=== PATIENT | female | born 1970 | race Caucasian/White ===

== ENCOUNTER 2017-05-08 17:04 | Emergency (ER) | payer OTHER ==
[~2017-05-08] VITALS: Ht 170.2 cm; Wt 69.9 kg
[~2017-05-08 17:04] MED LIST: BENADRYL50 MG PO; CIPRO500 MG PO; DAY-TIME COLD-1 EACH PO; MACROBID100 MG PO; NOHOMEMEDS; NYQUIL D COLD295 ML PO; PYRIDIUM100 MG PO; PYRIDIUM200 MG PO; TYLENOL PM PO
[2017-05-08 20:15] LABS: EOSINOPHIL (%) 0.1 % (0-5); HEMATOCRIT 36.6 % (36.0-46.0); IMMATURE GRANULOCYTE (%) 0.1 % (0.0-0.7); LYMPHOCYTE COUNT 1.6 K/uL (1.0-2.8); MCH 26.4 PG (29.0-34.0); MCHC 32.5 G/DL (30.0-36.0); MCV 81.3 FL (83-99); MEAN PLAT.VOLUME 9.3 uM^3 (9.5-12.4); MONOCYTE COUNT 0.4 K/uL (0-0.8); PLATELET COUNT 298 K/uL (156-360); RBC DIS.WIDTH-CV 12.9 % (11.8-14.6); RBC DIS.WIDTH-SD 38.1 % (39-53)
[2017-05-08 20:22] LABS: CHLORIDE 105 mEq/L (99-109); POTASSIUM 3.8 mEq/L (3.7-5.4); SODIUM 139 mEq/L (136-147)
[2017-05-08 20:24] LABS: GLUCOSE 96 mg/dL (70-99)
[2017-05-08 20:26] LABS: ANION GAP 8 MEQ/L (2-14)
[2017-05-08 20:28] LABS: GFR ESTIMATE (CALCULATED) > 59 mL/min/
[2017-05-08 20:29] LABS: UREA NITROGEN (BUN) 10 mg/dL (9-23)
[2017-05-08 21:27] VITALS: BP 121/80
== END 2017-05-08 21:28 | disposition home or self-care (01) ==
LOC: EME 17:04
PROVIDERS: Physician Assistant
DX: R00.2 Palpitations (principal); Z88.5 Allergy status to narcotic agent; Z88.1 Allergy status to other antibiotic agents; F17.200 Nicotine dependence, unspecified, uncomplicated
CPT/HCPCS: 80048; 85025; 93005; 99281; 99284